=== PATIENT | female | born 1935 | race Caucasian/White ===

== ENCOUNTER 2016-10-22 02:52 | Emergency (ER) | payer MEDICARE ==
[~2016-10-22] VITALS: Ht 162.6 cm; Wt 76.0 kg
[~2016-10-22 02:52] MED LIST: AMLO-511 PO; ASPI1TAB7 PO; ATOR40TA28 PO; GABA-531 PO; GLIP5 PO; HYDR25TA PO; INSLAN SQ; INSNOV SQ; LEVO25TA9 PO; METF1000 PO; VALS160T2 PO
[2016-10-22 03:12] LABS: GLUCOSE COMMENT 1 Doctor Notified; GLUCOSE,POINT OF CARE 139 MG/DL (70-110)
[2016-10-22 04:21] LABS: APPEARANCE,URINE CLEAR (CLEAR); GLUCOSE, URINE (UA) 100 mg/dL (NEGATIVE); KETONES,URINE NEGATIVE (NEGATIVE); LEUKOCYTE ESTERASE ,URINE MODERATE (NEGATIVE); OCCULT BLOOD,URINE NEGATIVE (NEGATIVE); PH,URINE 7.5 (5.0-8.0); PROTEIN,URINE NEGATIVE (NEGATIVE)
[2016-10-22 04:35] LABS: RBC,URINE None Seen /HPF (0-2); SQUAMOUS EPITHELIAL CELL,UR Few /LPF (None Seen)
[2016-10-22] MEDS ORDERED: SODIUM CHLORIDE 0.9% 100 ML ONE (04:58)
[2016-10-22] MEDS ORDERED: IOVERSOL 350 MG/ML 100 ML VIAL ONE (04:58)
[2016-10-22 05:00] LABS: BASOPHILS # (AUTO) 0.03 K/uL (0.00-0.20); BASOPHILS % (AUTO) 0.4 % (0.0-2.0); EOSINOPHILS # (AUTO) 0.09 K/uL (0.00-0.70); EOSINOPHILS % (AUTO) 1.23 % (1.0-6.0); HEMATOCRIT 37.4 % (36-46); HEMOGLOBIN 12.6 g/dL (12.0-16.0); LYMPHOCYTES # (AUTO) 2.1 K/uL (1.0-4.8); LYMPHOCYTES % (AUTO) 29.2 % (22.0-44.0); MEAN CORPUSCULAR HEMOGLOBIN 31.1 pg (26.0-34.0); MEAN CORPUSCULAR HGB CONC 33.7 G/dL (31.0-37.0); MEAN CORPUSCULAR VOLUME 92 fL (80-100); MONOCYTES # (AUTO) 0.4 K/uL (0.1-1.0); MONOCYTES % (AUTO) 5.4 % (2.0-9.0); NEUTROPHILS # (AUTO) 4.7 K/uL (1.8-7.7); NEUTROPHILS % (AUTO) 63.8 % (40.0-70.0); PLATELET COUNT (AUTO) 304 K/uL (150-450); RED BLOOD CELL COUNT(AUTO) 4.05 MIL/uL (4.00-5.20); RED CELL DISTRIBUTION WIDTH 13.9 % (11.5-14.5); WHITE BLOOD COUNT (AUTO) 7.3 K/uL (4.5-11.0)
[2016-10-22 05:05] LABS: ANION GAP 5 mmol/L (8-16); CALCIUM, TOTAL 9.9 mg/dL (8.8-10.5); CARBON DIOXIDE 32 mmol/L (22-29); CHLORIDE 104 mmol/L (98-107); CREATININE 0.75 mg/dL (0.60-1.30); GLOMERULAR FILTR. RATE CALC > 60 mL/min (>60); POTASSIUM 4.5 mmol/L (3.5-5.1); SODIUM SERUM 141 mmol/L (136-145); UREA NITROGEN, BLOOD 20 mg/dL (7-18)
[2016-10-22 05:11] LABS: ALANINE AMINOTRANSFERASE 33 U/L (12-78); ALBUMIN 3.9 g/dL (3.4-5.0); ASPARTATE AMINOTRANSFERASE 22 U/L (15-37); BILIRUBIN,TOTAL 0.3 mg/dL (0.1-1.0); TOTAL PROTEIN, SERUM 7.6 g/dL (6.4-8.2)
[2016-10-22 09:47] LABS: GLUCOSE,POINT OF CARE 99 MG/DL (70-110)
[2016-10-22 10:55] VITALS: BP 134/67
[2016-10-22] MEDS ORDERED: ACETAMINOPHEN 325 MG TABLET PO ONE (11:15)
== END 2016-10-22 11:53 | disposition home or self-care (01) ==
LOC: EMS 02:54
DX: R42 Dizziness and giddiness (principal); I65.23 Occlusion and stenosis of bilateral carotid arteries; E11.9 Type 2 diabetes mellitus without complications; I10 Essential (primary) hypertension; Z79.4 Long term (current) use of insulin
CPT/HCPCS: 36415; 70450; 70498; 80053; 81001; 82962; 85025; 87086; 93005; 99285; J7050; Q9967

== ENCOUNTER 2016-11-08 18:28 | Emergency (ER) | payer MEDICARE ==
[~2016-11-08] VITALS: Ht 137.2 cm; Wt 71.4 kg
[2016-11-08] MEDS ORDERED: RIVA15T PO (18:36)
[2016-11-08 18:41] LABS: GLUCOSE,POINT OF CARE 82 MG/DL (70-110)
[2016-11-08] MEDS ORDERED: ONDANSETRON HCL 4 MG/2 ML VIAL IVP ONE (20:30)
[2016-11-08] MEDS ORDERED: MORPHINE SULFATE 4 MG/ML SYRINGE IVP ONE (20:30)
[2016-11-08 20:44] LABS: BASOPHILS % (AUTO) 0.4 % (0.0-2.0); EOSINOPHILS % (AUTO) 2.2 % (1.0-6.0); HEMATOCRIT 35.9 % (36-46); HEMOGLOBIN 11.7 g/dL (12.0-16.0); LYMPHOCYTES # (AUTO) 4.2 K/uL (1.0-4.8); LYMPHOCYTES % (AUTO) 49.8 % (22.0-44.0); MEAN CORPUSCULAR HEMOGLOBIN 30.6 pg (26.0-34.0); MEAN CORPUSCULAR HGB CONC 32.6 G/dL (31.0-37.0); MEAN CORPUSCULAR VOLUME 94 fL (80-100); MONOCYTES # (AUTO) 0.5 K/uL (0.1-1.0); MONOCYTES % (AUTO) 6.3 % (2.0-9.0); NEUTROPHILS # (AUTO) 3.5 K/uL (1.8-7.7); NEUTROPHILS % (AUTO) 41.3 % (40.0-70.0); PLATELET COUNT (AUTO) 331 K/uL (150-450); RED BLOOD CELL COUNT(AUTO) 3.82 MIL/uL (4.00-5.20); RED CELL DISTRIBUTION WIDTH 13.2 % (11.5-14.5); WHITE BLOOD COUNT (AUTO) 8.4 K/uL (4.5-11.0)
[2016-11-08 21:07] LABS: ALANINE AMINOTRANSFERASE 36 U/L (12-78); ALBUMIN 3.7 g/dL (3.4-5.0); ANION GAP 10 mmol/L (8-16); ASPARTATE AMINOTRANSFERASE 20 U/L (15-37); BILIRUBIN,TOTAL 0.2 mg/dL (0.1-1.0); CALCIUM, TOTAL 9.1 mg/dL (8.8-10.5); CARBON DIOXIDE 28 mmol/L (22-29); CHLORIDE 109 mmol/L (98-107); GLOMERULAR FILTR. RATE CALC > 60 mL/min (>60); POTASSIUM 4.2 mmol/L (3.5-5.1); SODIUM SERUM 147 mmol/L (136-145); TOTAL PROTEIN, SERUM 7.5 g/dL (6.4-8.2); UREA NITROGEN, BLOOD 15 mg/dL (7-18)
[2016-11-08] MEDS ORDERED: MORPHINE SULFATE 4 MG/ML SYRINGE IM ONE (21:15)
[2016-11-08] MEDS ORDERED: ONDANSETRON HCL 4 MG/2 ML VIAL IM ONE (21:15)
[2016-11-08 22:34] VITALS: BP 133/78
== END 2016-11-08 22:35 | disposition home or self-care (01) ==
LOC: EMS 18:29
DX: G44.209 Tension-type headache, unspecified, not intractable (principal); E11.9 Type 2 diabetes mellitus without complications; I10 Essential (primary) hypertension; E03.9 Hypothyroidism, unspecified; Z79.4 Long term (current) use of insulin
CPT/HCPCS: 70450; 80053; 82962; 85025; 93005; 96372; 99285; J2270; J2405

== ENCOUNTER 2018-04-01 20:34 | Emergency (ER) | payer MEDICARE ==
[~2018-04-01] VITALS: Ht 147.3 cm; Wt 65.9 kg
[~2018-04-01 20:34] MED LIST changes: +RIVA15T PO
[2018-04-01 20:49] LABS: GLUCOSE,POINT OF CARE 416 MG/DL (70-110)
[2018-04-01 22:44] LABS: GLUCOSE,POINT OF CARE 329 MG/DL (70-110)
[2018-04-01] MEDS ORDERED: INSULIN GLARGINE,HUM.REC.ANLOG 100 UNITS/ML SQ ONE (23:30)
[2018-04-01 23:46] VITALS: BP 128/75
== END 2018-04-01 23:48 | disposition home or self-care (01) ==
LOC: EMS 20:36
DX: S09.90XA Unspecified injury of head, initial encounter (principal); E11.9 Type 2 diabetes mellitus without complications; I10 Essential (primary) hypertension; E03.9 Hypothyroidism, unspecified; Z90.710 Acquired absence of both cervix and uterus; Z79.4 Long term (current) use of insulin; Z79.84 Long term (current) use of oral hypoglycemic drugs; W01.0XXA Fall on same level from slipping, tripping and stumbling without subsequent striking against object, initial encounter; Y93.89 Activity, other specified; Y92.89 Other specified places as the place of occurrence of the external cause; Y99.8 Other external cause status
CPT/HCPCS: 70450; 82962; 96372; 99284; J1815

== ENCOUNTER 2019-02-17 17:11 | Emergency (ER) | payer MEDICARE ==
[~2019-02-17] VITALS: Ht 144.8 cm; Wt 75.0 kg
[~2019-02-17 17:11] MED LIST changes: -AMLO-511 PO; +AMLO5TAB9 PO; +APIX5TAB PO; -ASPI1TAB7 PO; +DICL75TA5 PO; -GLIP5 PO; +PANT40TA25 PO; -RIVA15T PO
[2019-02-17] MEDS ORDERED: MECL-111 PO (17:54)
[2019-02-17] MEDS ORDERED: GLIP5 PO (17:54)
[2019-02-17 17:56] LABS: GLUCOSE,POINT OF CARE 446 MG/DL (70-110)
[2019-02-17] MEDS ORDERED: PANT20TA12 PO (20:27)
[2019-02-17] MEDS ORDERED: TraMADol HCL 50 MG TABLET PO ONE (20:30)
[2019-02-17 21:22] VITALS: BP 131/76
== END 2019-02-17 21:30 | disposition home or self-care (01) ==
LOC: EMS 17:14
DX: S42.252A Displaced fracture of greater tuberosity of left humerus, initial encounter for closed fracture (principal); S09.90XA Unspecified injury of head, initial encounter; I10 Essential (primary) hypertension; E03.9 Hypothyroidism, unspecified; E11.9 Type 2 diabetes mellitus without complications; E78.00 Pure hypercholesterolemia, unspecified; Z79.4 Long term (current) use of insulin; Z79.899 Other long term (current) drug therapy; W01.0XXA Fall on same level from slipping, tripping and stumbling without subsequent striking against object, initial encounter; Y93.89 Activity, other specified; Y92.89 Other specified places as the place of occurrence of the external cause; Y99.8 Other external cause status
CPT/HCPCS: 70450